=== PATIENT | female | born 2000 | race Caucasian/White ===

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

== ENCOUNTER 2019-02-25 01:32 | Inpatient (IN) | payer MEDICAID ==
[2019-02-25] MEDS ORDERED: PENICILLIN G POTASSIUM 5,000,000 UNIT in DEXTROSE 5%-WATER 100 ML IV ONE (01:58)
[2019-02-25] MEDS ORDERED: PENICILLIN G-K 5 MILLION UNIT VIAL ONE ×4 (02:13→13:50)
[2019-02-25] MEDS: RINGERS SOLUTION,LACTATED 1,000 ML IV PRN ×2 (02:19→14:14)
[2019-02-25 02:27] LABS: ABSOLUTE BASOPHILS # (AUTO) 0.1 10^3/uL (0.0-0.2); ABSOLUTE EOSINOPHILS # (AUTO) 0.2 10^3/uL (0.0-0.6); ABSOLUTE LYMPHOCYTES (AUTO) 2.6 10^3/uL (0.5-4.7); ABSOLUTE MONOCYTES (AUTO) 1.2 10^3/uL (0.1-1.4); BASOPHILS % (AUTO) 0.5 % (0-2); EOSINOPHILS % (AUTO) 1.4 % (0-6); HEMATOCRIT 30.6 % (36.0-47.0); HEMOGLOBIN 10.6 g/dL (12.0-15.5); LYMPHOCYTES % (AUTO) 16.9 % (13-45); MEAN CORPUSCULAR HGB CONC 34.7 g/dL (32.0-36.0); MEAN CORPUSCULAR VOLUME 89 fl (80-97); MONOCYTES % (AUTO) 7.8 % (3-13); PLATELET COUNT 177 10^3/uL (150-450); RED BLOOD COUNT 3.43 10^6/uL (3.72-5.28); RED CELL DISTRIBUTION WIDTH 13.3 % (11.5-14.0); SEGMENTED NEUTROPHILS % (AUTO) 73.4 % (42-78); TOTAL CELLS COUNTED % (AUTO) 100 %; WHITE BLOOD COUNT 15.1 10^3/uL (4.0-10.5)
[2019-02-25 02:34] LABS: APPEARANCE,URINE SLIGHTLY-CLOUDY; BILIRUBIN,URINE NEGATIVE (NEGATIVE); COLOR,URINE YELLOW; GLUCOSE, URINE NEGATIVE (NEGATIVE); KETONES,URINE NEGATIVE (NEGATIVE); LEUKOCYTE ESTERASE,URINE NEGATIVE (NEGATIVE); NITRITE,URINE NEGATIVE (NEGATIVE); PROTEIN,URINE NEGATIVE (NEGATIVE); URINE SPECIFIC GRAVITY 1.015; UROBILINOGEN,URINE NEGATIVE mg/dL (<2.0)
[2019-02-25 03:44] LABS: URINE AMPHETAMINES SCREEN NEGATIVE; URINE BARBITURATES SCREEN NEGATIVE; URINE BENZODIAZEPINES SCREEN NEGATIVE; URINE COCAINE SCREEN NEGATIVE; URINE MARIJUANA (THC) SCREEN NEGATIVE; URINE METHADONE SCREEN NEGATIVE; URINE PHENCYCLIDINE SCREEN NEGATIVE
[2019-02-25] MEDS ORDERED: MISOPROSTOL 0.2 MG TABLET ONE (03:45)
[2019-02-25] MEDS ORDERED: OXYTOCIN 10 UNIT/ML VIAL ONE (03:45)
[2019-02-25] MEDS ORDERED: LIDOCAINE 1% INJ-PF (10 MG/ML) 30 ML SDV ONE (03:46)
[2019-02-25] MEDS ORDERED: OXYTOCIN/NORMAL SALINE 20 UNIT/1,000 ML RTUINJ ONE ×2 (03:46→16:22)
[2019-02-25] MEDS: PENICILLIN G POTASSIUM 2,500,000 UNIT in DEXTROSE 5%-WATER 50 ML IV SCH ×3 (06:10→14:07)
[2019-02-25] MEDS ORDERED: NALBUPHINE HCL INJ 10 MG/1 ML AMPULE ONE (08:15)
[2019-02-25] MEDS ORDERED: PROMETHAZINE HCL INJ 25 MG/1 ML VIAL ONE (08:15)
--- NOTE | 2019-02-25 08:48 | Admission Physical ---
Datetime Report Generated by CPN: 02/25/2019 08:48 CURRENT ADMISSION Chief Complaint: Suspected Ruptured Membranes Admit Impression : Term, Intrauterine ; Ruptured Membranes Admit Impression- Other: GBS Positive Admit Plan: Admit to Unit ALLERGIES Medication Allergies: No Medication Allergies: none Latex: No Latex Allergies OBSTETRICAL HISTORY EDC: 03/07/2019 00:00 : 2 Para: 0 Term: 0 : 0 SAB: 0 IAB: 1 Ectopic: 0 Livin Cesareans: 0 VBACs: 0 Multiple Births: 0 Gestational Diabetes: No Rh Sensitization: No Incompetent Cervix: No MIKE: No Infertility: No ART Treatment: No Uterine Anomaly: No IUGR: No Hx Previous C/S: No Macrosomia: No Hx Loss/Stillborn: No PIH: No Hx : No Placenta Previa/Abruption: No Depression/PP Depression: No PTL/PROM: No Post Hemorrhage: No Current Procedures: Ultrasound Obstetrical History Comments: G1- EAAugust 2016 G2 - current SEE RECORDS Alcohol: No Marijuana : No Cocaine: No Other Illicit Drugs: No Cigarettes: Current Everyday Smoker. 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 Hand Surgery: No Heart Disease: No Hosp/Surgery: Yes Autoimmune Disorder: No Anesthetic Complications: No Kidney Disease: No Abnormal Pap Smear: No Neuro/Epilepsy: No Psychiatric Disorders: No Other Medical Diseases: No Hepatitis/Liver Disease: No Significant Family History: No Varicosities/Phlebitis: No Trauma/Violence : No Thyroid Dysfunction: No Medical History Comments: hand surgery, epilepsy when INFECTIOUS HISTORY Gonorrhea: Yes Genital Herpes: No Chlamydia: Yes Tuberculosis: No Syphilis: No Hepatitis: No HIV/AIDS Exposure: No Rash or Viral Illness: No HPV: No Infectious History Comments: GC, chlam, trich PHYSICAL EXAM General: Normal HEENT: Normal Neurologic: Normal Thyroid: Normal Heart: Normal Lungs: Normal Breast: Normal Back: Normal Abdomen: Normal Genitourinary Exam: Normal Extremities: Normal DTRs: Normal Pelvic Type: Adequate Vital Signs: Reviewed VAGINAL EXAM Contraction Comments: 2-4 MEMBRANES Membranes: Ruptured Amniotic Fluid Color: Clear FETUS A EGA: 38.4 Monitoring: External US FHR- Baseline: 130 Variability: Moderate 6-25bpm Accelerations: 15X15 Decelerations: Variable Admit Comment: Pt presented with c/o leaking amniotic fluid starting at 0100. GBS+,PCN prophylaxis started, having irregular contractions. Pitocin infusing to augment. VE this morning by RN /-3. s/p IV pain medication. Plans epidural with further cervical change. Hx Bipolar and epilepsy as a child. Attending MD is Dr Rodriguez. PLANS FOR LABOR AND DELIVERY Labor and Delivery: None Pain Management: Natural; Epidural Feeding Preference: Formula Benefit of Breast Feed Discussed: Yes Circumcision: Yes INFORMED CONSENT Assignment: Nadine Rodriguez MD Signature: with User ID: [email or web address] : with User ID: [email or web address]
[2019-02-25] MEDS ORDERED: OXYTOCIN/NORMAL SALINE 20 UNIT/1,000 ML RTUINJ IV PRN ×3 (09:16→16:26)
[2019-02-25] MEDS ORDERED: BUPIVACAINE HCL 0.25 % INJ/PF (2.5 MG/1 ML) 30 ML VIAL ONE (11:37)
[2019-02-25] MEDS ORDERED: EPHEDRINE SULFATE INJ 50 MG/1 ML AMPULE ONE (11:37)
[2019-02-25] MEDS ORDERED: FENTANYL/BUPIVACAINE/NS/PF 300 MCG/150 ML RTUINJ EPI ONE (11:37)
[2019-02-25] MEDS ORDERED: DIBUCAINE 1% OINTMENT 56 GM TP PRN (16:20)
[2019-02-25] MEDS ORDERED: MISOPROSTOL 0.2 MG TABLET PO PRN (16:20)
[2019-02-25] MEDS ORDERED: ZOLPIDEM TARTRATE 5 MG TABLET PO PRN (16:20)
[2019-02-25] MEDS ORDERED: MEASLES,MUMPS&RUBELLA VACC/PF 0.5 ML VIAL SUBCUT PRN (16:20)
[2019-02-25] MEDS ORDERED: DIPH/PERTUSS(ACELL)/TETANUS VAC/PF 0.5 ML SYR (>=10YO) IM PRN (16:20)
[2019-02-25] MEDS ORDERED: ACETAMINOPHEN WITH CODEINE #3 TABLET PO PRN (16:20)
[2019-02-25] MEDS ORDERED: BENZOCAINE/MENTHOL AEROSOL SPRAY 56 ML TOP PRN (16:20)
[2019-02-25] MEDS: DOCUSATE SODIUM 100 MG CAPSULE PO SCH (18:25)
[2019-02-25] MEDS: IBUPROFEN 800 MG TABLET PO SCH ×2 (18:25→21:06)
[2019-02-25] MEDS: FERROUS SULFATE 325 MG TABLET PO SCH (18:25)
--- NOTE | 2019-02-25 18:56 | Delivery Summary ---
Del Sum A-C Datetime Report Generated by CPN: 02/25/2019 18:56 DELIVERY PERSONNEL DELIVERY PERSONNEL: [id number] Delivery Doctor:: Desire Mckeon CNM Nurse Steel Buffer Certified:: Desire Mckeon CNM Labor and Delivery Nurse:: Rachel Duran RNpig handler Nurse:: MARIJA Jackson Pantry Chef/FORECLOSURE SPECIALIST: Maria Ines Quinones CST (Annotations: Data stored by Josee on behalf of user) MATERNAL INFORMATION Delivery Anesthesia: Epidural Medications After Delivery: Pitocin 10 Units IM Meds After Delivery Comment: 10 mg IM @ 1604 right Quad Delivery QBL: 500 Maternal Complications: None Provider Comments: of VMI, loose NC x 1, easily reduced. Baby vigorous and crying, placed on pts abdoman. Cord clamped and cut. Cord blood obtained. Cord evulsion just prior to placenta delivery. PLacenta was in the vagina and manually delivered. Pts IV had infiltrated, so Cytotec 200 mcg SL and IM Pitocin given. Uterine atony present until IM Pitocin took effect. QBL 500 ml. Repair of labial laceration done, pt and baby in stable condition, skin to skin. Attending MD is Dr Rodriguez LABOR SUMMARY EDC: 03/07/2019 00:00 No. Babies in Womb: 1 Attempted: No Labor Anesthesia: Epidural LABOR INFORMATION Reason for Induction: Not Applicable Onset of Labor: 02/25/2019 01:10 Complete Dilatation: 02/25/2019 15:26 Oxytocin: Augmentation Group B Beta Strep: positive Antibiotics # of Doses: 4 Antibiotics Time of Last Dose: 1407 Name of Antibiotic Given: PCN Steroids Given: None Reason Steroids Not Administered: Not Applicable MEMBRANES Membranes Rupture Method: Spontaneous Rupture of Membranes: 02/25/2019 01:10 Length of Rupture (hr): 14.75 Amniotic Fluid Color: Clear Amniotic Fluid Amount: Moderate Amniotic Fluid Odor: Normal STAGES OF LABOR Stage 1 hr: 14 Stage 1 min: 16 Stage 2 hr: 0 Stage 2 min: 29 Stage 3 hr: 0 Stage 3 min: 5 Total Time in Labor hr: 14 Total Time in Labor min: 50 VAGINAL DELIVERY Episiotomy: None Laceration #1: None Laceration Extension #1: First Degree Other Laceration: left labial laceration Laceration Repair: Yes Laceration Repair Note: Left labial minoral laceration, numbed with lidocaine, 3 interupted stitches placed to approximate using 3.0 vicryl of SH needle Sponge Count Correct: N/A Sharps Count Correct: N/A CSECTION DELIVERY Primary Indication: N/A Secondary Indication: N/A CSection Incidence: N/A Labor: N/A Elective: N/A CSection Incision: N/A BABY A INFORMATION Infant Delivery Date/Time: 02/25/2019 15:55 Method of Delivery: Vaginal Born in Route : No : N/A Forceps: N/A Vacuum Extraction: N/A Shoulder Dystocia : No PRESENTATION/POSITION BABY A Presentation: Cephalic Cephalic Presentation: Vertex Vertex Position: Left Occipital Anterior Breech Presentation: N/A PLACENTA INFORMATION BABY A Placenta Delivery Time : 02/25/2019 16:00 Placenta Method of Delivery: Manual Removal Placenta Status: Delivered SCORES BABY A Heart Rate 1 min: >100 bpm Resp Effort 1 min: Good Cry Reflex Irritability 1 min: Cough or Sneeze or Pulls Away Muscle Tone 1 min: Active Motion Color 1 min: Body [place], Extremities Blue Resuscitation Effort 1 min: Tactile Stimulation SCORE 1 MIN: 9 Heart Rate 5 min: >100 bpm Resp Effort 5 min: Good Cry Reflex Irritability 5 min: Cough or Sneeze or Pulls Away Muscle Tone 5 min: Active Motion Color 5 min: Body [place], Extremities Blue Resuscitation Effort 5 min: N/A SCORE 5 MIN: 9 Resuscitation Effort 10 min: N/A INFORMATION BABY A Gestational Age at Delivery: 38.4 Gestational Status: Early Term- 37- 38.6 Weeks Outcome : Liveborn Condition : Stable Sex: Male IDENTIFICATION BABY A Verification Date/Time: 02/25/2019 16:43 ID Band Number: [id number] Infant RN Verifying Infant: B Baidy RN/ [place] [facility] WEIGHT/LENGTH BABY A Birthweight (gm): 2901 Weight (lb): 6 Weight (oz): 6 Length (in): 19.75 Length (cm): 50.17 CORD INFORMATION BABY A No. Cord Vessels: 3 Nuchal Cord : Around Neck x1, Loose Cord Blood Taken: Yes-For Eval (Mom's Blood Type - or O+) Infant Suction: None ASSESSMENT BABY A Infant Complications: None Physical Findings at Delivery: Within Normal Limits Respirations: Appears Normal Skin to Skin: Yes Skin to Skin Time (min): 90 Marine Service Manager/ALS Called : No Infant Care By: [facility] RN Transferred To: Remains with Mother BABY B INFORMATION : N/A SIGNATURES Assignment: Nadine Rodriguez MD Signature: with User ID: [email or web address] : with User ID: [email or web address]
[2019-02-26] MEDS: IBUPROFEN 800 MG TABLET PO SCH ×3 (05:29→21:26)
[2019-02-26 06:54] LABS: HEMATOCRIT 24.7 % (36.0-47.0); HEMOGLOBIN 8.7 g/dL (12.0-15.5); MEAN CORPUSCULAR HEMOGLOBIN 31.2 pg (27.0-33.4); MEAN CORPUSCULAR HGB CONC 35.1 g/dL (32.0-36.0); MEAN CORPUSCULAR VOLUME 89 fl (80-97); PLATELET COUNT 155 10^3/uL (150-450); RED BLOOD COUNT 2.78 10^6/uL (3.72-5.28); RED CELL DISTRIBUTION WIDTH 13.6 % (11.5-14.0); WHITE BLOOD COUNT 17.4 10^3/uL (4.0-10.5)
--- NOTE | 2019-02-26 10:54 | PDOC PROGRESS REPORT ---
Subjective-OB Progress Note for:: 02/26/19 - PP Day#1, doing well, just showered, no complaints, bottlefeeding, O+, rubella immune,Hx Bipolar no meds currently Physical Exam (OB) Vital Signs: Temp Pulse Resp BP Pulse Ox 97.7 F 64 16 100/55 L 94 02/26/19 07:58 02/26/19 07:58 02/26/19 07:58 02/26/19 07:58 02/26/19 07:58 Intake & Output 02/25/19 02/26/19 02/27/19 06:59 06:59 06:59 Intake Total 1999 Balance 1999 Weight 78.585 kg - General General Appearance: Appears well, Alert In distress: None - PIH/Pre-Eclampsia Headache: Absent Epigastric Pain: No Visual Changes: No - Lochia Lochia Amount: Small 10-25 ml Lochia Color: Rubra/Red - Abdomen Description: Soft, Round Fundal Description: Firm, Midline Fundal Height: u/u - u/2 - Respiratory Respiratory Status: No respiratory distress - Abdominal Distension: No distension Tenderness: Nontender - Genitourinary Genitourinary Note: voiding - Extremities Upper extremity: Normal inspection Lower extremities: Normal inspection - Neurological Cognition: Normal Orientation: AAOx4 - Psychological Associated symptoms: Normal affect, Normal mood - Skin Skin Temperature: Warm Skin Moisture: Dry Objective-Diagnostic Laboratory: 02/26/19 06:18 02/26/19 06:18 WBC 17.4 H RBC 2.78 L Hgb 8.7 L Hct 24.7 L MCV 89 MCH 31.2 MCHC 35.1 RDW 13.6 Plt Count 155 Assessment and Plan(PN) - Assessment and Plan (1) Hx of bipolar disorder Is this a current diagnosis for this admission?: Yes (2) Acute blood loss anemia Is this a current diagnosis for this admission?: Yes (3) (normal spontaneous vaginal delivery) Is this a current diagnosis for this admission?: Yes (4) atony of uterus with hemorrhage Is this a current diagnosis for this admission?: Yes - Time Spent with Patient Time with patient: Less than 15 minutes Medications reviewed and adjusted accordingly: Yes - Disposition Anticipated Discharge: Home Within: within 24 hours
[2019-02-26] MEDS: PRENATAL VITAMIN W DHA CAPSULE PO SCH (10:57)
[2019-02-26] MEDS: DOCUSATE SODIUM 100 MG CAPSULE PO SCH ×2 (10:57→18:28)
[2019-02-26] MEDS: FERROUS SULFATE 325 MG TABLET PO SCH ×2 (10:57→18:27)
[2019-02-26] MEDS: SENNOSIDES/DOCUSATE 8.6-50 MG 1 EACH TABLET PO SCH (10:57)
[2019-02-27] MEDS: IBUPROFEN 800 MG TABLET PO SCH (06:08)
[2019-02-27 08:07] VITALS: BP 117/67
[2019-02-27] MEDS: SENNOSIDES/DOCUSATE 8.6-50 MG 1 EACH TABLET PO SCH (09:51)
[2019-02-27] MEDS: DOCUSATE SODIUM 100 MG CAPSULE PO SCH (09:51)
[2019-02-27] MEDS: PRENATAL VITAMIN W DHA CAPSULE PO SCH (09:51)
[2019-02-27] MEDS: FERROUS SULFATE 325 MG TABLET PO SCH (09:51)
--- NOTE | 2019-02-27 10:12 | PDOC DISCHARGE SUMMARY ---
Final Diagnosis Discharge Date: 02/27/19 - PP Day#2, doing well, O+, rubella immune, bottlefeeding - Final Diagnosis (1) Hx of bipolar disorder Is this a current diagnosis for this admission?: Yes (2) Acute blood loss anemia Is this a current diagnosis for this admission?: Yes (3) (normal spontaneous vaginal delivery) Is this a current diagnosis for this admission?: Yes (4) atony of uterus with hemorrhage Is this a current diagnosis for this admission?: Yes Discharge Data - Discharge Medication Prescriptions: Ibuprofen [Motrin 800 mg Tablet] 800 mg PO Q8 #60 tablet Home Medications: Vitamin [-U Multiple Vitamin Capsule] 1 tab PO DAILY 02/25/19 Ibuprofen [Motrin 800 mg Tablet] 800 mg PO Q8 #60 tablet 02/27/19 Reason(s) for Admission: Onset of Labor Intrapartum Procedure(s): Spontaneous Vaginal Delivery Complication(s): Laceration-Labial - Diagnosis Test Laboratory: Temp Pulse Resp BP Pulse Ox 97.6 F 95 16 117/67 98 02/27/19 07:29 02/27/19 07:29 02/27/19 07:29 02/27/19 07:29 02/27/19 07:29 02/25/19 02/25/19 02/26/19 01:45 02:12 06:18 RBC 3.43 L 2.78 L Hgb 10.6 L 8.7 L Hct 30.6 L 24.7 L Urine Opiates Screen NEGATIVE - Discharge information/Instructions Discharge Activity: Activity As Tolerated, No Lifting Over 10 Pounds, Pelvic Rest Discharge Diet: As Tolerated, Regular Disposition: HOME, SELF-CARE Follow up with: [facility] in: 4, Weeks
== END 2019-02-27 14:30 | disposition home or self-care (01) | DRG 806 ==
LOC: LC 01:32 → LR 01:56 → 2S 18:50
PROVIDERS: ADMIT Obstetrics & Gynecology; ATTEND Obstetrics & Gynecology
PROC: 10E0XZZ Delivery of Products of Conception, External Approach (ICD-10-PCS; principal; 2019-02-25)
PROC: 0HQ9XZZ Repair Perineum Skin, External Approach (ICD-10-PCS; 2019-02-25)
DX: O99.824 Streptococcus B carrier state complicating childbirth (principal); D62 Acute posthemorrhagic anemia; Z37.0 Single live birth; O90.81 Anemia of the puerperium; O69.81X0 Labor and delivery complicated by cord around neck, without compression, not applicable or unspecified; O72.1 Other immediate postpartum hemorrhage; O70.0 First degree perineal laceration during delivery; O99.344 Other mental disorders complicating childbirth; F31.9 Bipolar disorder, unspecified; O99.334 Smoking (tobacco) complicating childbirth; F17.210 Nicotine dependence, cigarettes, uncomplicated; Z3A.38 38 weeks gestation of pregnancy
CPT/HCPCS: 36415; 80307; 81005; 85025; 85027; 86592; 86850; 86900; 86901; 90715; 94760; C1751; J2300; J2540; J2550; J2590; J3010; J3490; J7060